=== PATIENT | male | born 1960 | race Caucasian/White ===

== ENCOUNTER 2024-02-23 03:40 | Emergency (ER) | payer BC, MEDICARE, SELFPAY ==
[2024-02-23] VITALS (7 sets, daily range): BP systolic 177–225; BP diastolic 98–129; BMI 32.5
[2024-02-23 05:06] LABS: % Basophils 0.3 % (0-2); % Eosinophils 3.8 % (0-6); % Immature Granulocytes 0.3 % (0-0.5); % Lymphocytes 30.6 % (20.5-51.1); % Monocytes 7.7 % (1.7-9.3); % Neutrophils 57.3 % (42.2-75.2); Absolute Eosinophils 0.3 10^3/uL (0-0.7); Absolute Lymphocytes 2.7 10^3/uL (1.2-3.4); Absolute Monocytes 0.7 10^3/uL (0.1-0.6); Absolute Neutrophils 5.1 10^3/uL (1.4-6.5); Hematocrit 39.5 % (39.0-52.0); Hemoglobin 14.4 g/dL (13.0-18.0); Mean Corp Hgb Conc. 36.5 g/dL (33.0-37.0); Mean Corpuscular Volume 84.9 fL (80.0-94.0); Mean Platelet Volume 10.1 fL (7.4-10.4); Nucleated Red Blood Cells % 0 % (-); Platelet Count 161 10^3/uL (130-400); Red Blood Cell Count 4.65 10^6/uL (4.70-6.10); Red Cell Dist. Width 13.3 % (11.5-14.5); White Blood Cell Count 8.9 10^3/uL (4.8-10.8)
[2024-02-23 05:23] LABS: ALT (SGPT) 31 U/L (0-50); AST (SGOT) 29 U/L (17-59); Albumin 4.5 g/dl (3.5-5.0); Alkaline Phosphatase 53 U/L (38-126); Blood Urea Nitrogen 22 mg/dl (9-20); Carbon Dioxide 25 mmol/L (22-30); Chloride 99 mmol/L (98-107); Estimated Creatinine Clearance 73 ml/min; Glucose 154 mg/dl (70-99); Sodium 139 mmol/L (135-145); Total Bilirubin 1.1 mg/dl (0.2-1.3); Total Protein 7.5 g/dl (6.3-8.2); eGFR > 60.00
--- NOTE | 2024-02-23 09:28 | ED.GENMED ---
History of Present Illness
General
Chief Complaint: Blood Pressure Problem
Source: patient
Exam Limitations: none
Time Seen by Provider: 02/23/24 06:10
Nursing documentation reviewed up to this point in time: agreed with
History of Present Illness
History of Present Illness:
63-year-old male with a past medical history as documented presents to the emergency department for evaluation of hypertension and headache. Patient reports that yesterday he was feeling 'not quite right' and had mild headache and he checked his
blood pressure and noted it was elevated throughout the day. Overnight he felt headache was worsening and noticed his blood pressure was well over 200 at home and so he came to the emergency to be evaluated. Since arrival in the ER his blood
pressure has improved and he says that his headache has improved as well. He denies any chest pain, shortness of breath, dizziness. Denies any focal weakness or numbness. Denies any change in his vision or speech. He denies any other complaints.
He is on carvedilol 12.5 mg twice daily for blood pressure. Denies any missed doses. He does admit that yesterday he had a meal with his son who is a salad chef which included meat/steak with cream sauce which was very salty.
Past History
Past History
ED Past Medical History: CAD, GERD, HTN, Hypercholesterolemia, NIDDM, [place], Renal failure and Other (Diverticulitism UTI)
ED Past Surgical History: Bowel resection (For diverticulitis), Cardiac (PTCA with stents X 4 end of November 2009) and Orthopedic (back surgery)
Social History
Tobacco: Former smoker
Alcohol: Occasional
Drug: None
Personal:
Living: with family
Employment: Employed
Family History
Family History: Hypertension
Review of Systems
Review of Systems
All Other Systems: ROS reviewed and negative except as documented in HPI and ROS
Constitutional: Denies fever
Respiratory: Denies trouble breathing
Cardiac: Denies chest pain
ABD/GI: Denies abdominal pain, nausea or vomiting
: Denies flank pain
Musculoskeletal: Denies neck pain or back pain
Neurological: Reports headache; Denies dizzy, weakness or numbness
Phy Exam
Physical Exam
Physical Exam:
General: Awake, alert, oriented x3; no acute distress
Head: Normocephalic, atraumatic
Eyes: Conjunctiva normal, EOMI, pupils equal round and reactive to light bilaterally
Throat: Airway intact, handling secretions
Neck: Trachea midline, supple without meningismus
Lungs: Clear to auscultation bilaterally, no wheezing, rales, rhonchi
Heart: Regular rate and rhythm, no murmurs, gallops, or rubs
Abd: Soft, non distended, nontender
Neuro: Cranial nerves intact 2 through 12, speech fluid with no dysarthria or aphasia, no limb ataxia, motor and sensory function intact proximally and distally in the upper and lower extremities, ambulatory with normal gait and no ataxia
Extremities: No edema in extremities, equal pulses in all extremities
Scores
Heart Failure Risk
Heart Failure Risk Score: Not Applicable
Heart Score for Chest Pain Patients
STEMI patient?: Not applicable
Withdrawal Assessment of Alcohol
Withdrawal Assessment Completed?: Not applicable
Course
Orders/Labs/Results
Orders:
Orders
02/23/24 03:45
EKG [Electrocardiogram (*1)] Urgent
Reason for Study: Hypertension, Benign
02/23/24 03:46
EKG- Treatment ONCE
02/23/24 04:[address] [CT Head W/o Iv Contrast] Urgent
Comment:
Reason For Exam: HTN w/ headache
02/23/24 04:53
CMP [Comprehensive Metabolic Panel] Urgent
Complete Blood Count/With Diff Urgent
Abnormal Lab Results
02/23/24
04:53
RBC 4.65 L 10^6/uL
(4.70-6.10)
Absolute Monos (auto) 0.7 H 10^3/uL
(0.1-0.6)
BUN 22 H mg/dl
(9-20)
Glucose 154 H mg/dl
(70-99)
02/23/24 04:53
02/23/24 04:53
Vital Signs
Initial and Last Documented VS:
Initial Vital Signs
Temp Pulse Resp BP Pulse Ox
36.7 C 99 20 225/129 98
02/23/24 03:41 02/23/24 03:41 02/23/24 03:41 02/23/24 03:41 02/23/24 03:41
Last Documented Vital Signs
Temp Pulse Resp BP Pulse Ox
36.7 C 89 17 180/104 95
02/23/24 03:41 02/23/24 08:00 02/23/24 08:00 02/23/24 08:00 02/23/24 07:45
MDM/Problems Addressed
Differential Diagnosis Includes:
Hypertension
MDM/Problems Addressed:
63-year-old male presents for evaluation of hypertension with associated headache over the past 24 hours in the setting of recent salty meal yesterday. He was very hypertensive to 225/129 in triage. Blood pressure improved to 169/90 on my
assessment with no direct invention. He had lab work sent off including a CBC and a CMP which were unremarkable. EKG shows sinus rhythm no acute ischemic changes. He was sent for CT head which was negative for any acute pathology. His symptoms
improved with his blood pressure. At this point would hesitate to add additional antihypertensive medication as it has dramatically improved without intervention and likely was triggered by salt intake yesterday. Advised to monitor salt intake
very closely, he is requesting discharge at this point I think this is a reasonable plan. Follow-up with PCP as an outpatient. Spoke about return precautions all questions answered.
Chronic conditions affecting care:
Hypertension
Acute Exacerbation and/or Progression of Chronic Illness:
Acutely hypertensive managed as above
Acute Exacerbation and/or Progression of Chronic Illness: HTN
*Radiology
Radiology exam reviewed: radiology read reviewed
*Pulse Oximetry
Patient hypoxic: no
*EKG
Interpreted by ED Provider?: Yes
Heart Rate: 97
Rate: normal
Rhythm: sinus
[place]: normal axis
Interval: normal interval
QRS Pattern: normal QRS
Ischemia: no ischemia
*Critical Care Note
Total Time (30-74mins, 75-104mins- exclusive of procedures): Not Applicable
Data Reviewed
Source: patient
Prescriptions/Medications Considered But Not Given:
Considered additional antihypertensives such as IV hydralazine
ED Attending Note
-
Portions of this chart may have been created with voice recognition software.� Occasional wrong word or��sound alike� substitutions may have occurred due to the inherent limitations of voice recognition software.
Discharge Plan
Departure
Patient Disposition: Home (Routine Discharge)
Date of Disposition: 02/23/24
Time of Disposition: 08:13
Patient with high blood pressure during this ER visit?: Yes
Discharge Problem:
Hypertensive urgency
Instructions: High Blood Pressure (DC)
Prescriptions:
No Action
pantoprazole 40 MG tablet,delayed release (DR/EC)
40 mg PO DAILY Qty: 30 0RF
aspirin [Dilshad Low Dose Aspirin] 81 MG tablet,delayed release (DR/EC)
81 mg PO DAILY
rosuvastatin 10 MG tablet
10 mg PO QPM Qty: 90 3RF
famotidine 20 MG tablet
20 mg PO HS
albuterol sulfate [Proventil HFA] 90 MCG/PUFF HFA aerosol inhaler
1 puff inhalation Q4HPRN PRN (Reason: shortness of breath) Qty: 1 0RF
insulin glargine [Basaglar KwikPen U-100 Insulin] 100 UNIT/ML insulin pen
45 unit SQ DAILY
diphenhydramine HCl 25 MG strip
25 mg PO HS
carvedilol 12.5 MG tablet
12.5 mg PO BID Qty: 60 0RF
valsartan 80 MG tablet
240 mg PO DAILY Qty: 90 0RF
insulin aspart U-100 100 UNIT/ML insulin pen
5 unit SQ AC Qty: 5 0RF
cephalexin 500 mg capsule
500 mg PO Q8H Qty: 15 0RF
prednisone 20 mg tablet
20 mg PO DAILY Qty: 4 0RF
Referrals:
Phillip Maldonado MD [Family Provider] - Follow up in 5-7 days
Activity Restrictions/Additional Instructions:
Thank you for visiting the Emergency Department at [facility].
1. Please schedule a follow up appointment as directed. Call first thing tomorrow morning to make an appointment.
2. If indicated, please take your medications as instructed and indicated on discharge paperwork.
3. If any of your symptoms do not improve, or persist, or become more severe within 6-12 hours, please return to the emergency department for further care.
4. Please return to the emergency department if you develop a headache, neck pain/stiffness, fever greater than 100.4F, chest pain, shortness of breath, persistent nausea, vomiting, slurred speech, difficulty walking, numbness/tingling, weakness,
signs of infection or any other symptoms that are worrisome to you.
Please call [phone] if you have any questions.
Interventions
Interventions:
*Risk Screen - Suicide Last Done: 02/23/24 03:41
*General Assessment Last Done: 02/23/24 03:41
*Neglect/Abuse Screening Last Done: 02/23/24 03:41
*ED COVID-19 Vaccine History Last Done: 02/23/24 03:41
*Nursing Disposition Last Done: 02/23/24 08:25
ED- Cardiac Assessment Last Done: 02/23/24 04:45
ED- Neurological Assessment Last Done: 02/23/24 04:45
ED- Pulmonary Assessment Last Done: 02/23/24 04:45
Discharge Date and Time
Discharge Date/Time: 02/23/24 08:25
Print Language: ZAMBIAN
== END 2024-02-23 08:25 | disposition home or self-care (01) ==
LOC: EMR 03:40
PROVIDERS: Emergency Medicine; EMERGENCY PHYSICIAN Emergency Medicine; FAMILY PHYSICIAN Family Medicine
DX: I16.0 Hypertensive urgency (principal); I25.10 Atherosclerotic heart disease of native coronary artery without angina pectoris; E78.00 Pure hypercholesterolemia, unspecified; E11.9 Type 2 diabetes mellitus without complications; I25.2 Old myocardial infarction; Z87.891 Personal history of nicotine dependence; Z95.5 Presence of coronary angioplasty implant and graft; Z79.899 Other long term (current) drug therapy
CPT/HCPCS: 99284; 70450; 80053; 85025; 93005

== ENCOUNTER 2024-03-06 02:45 | Emergency (ER) | payer BC, SELFPAY ==
[2024-03-06 02:46] VITALS: BP 220/132
[2024-03-06 02:49] VITALS: BP 210/125
[2024-03-06 03:18] VITALS: BMI 31.6
[2024-03-06 03:31] VITALS: BP 212/108
[2024-03-06] MEDS: NSS 1000 IV (03:33)
[2024-03-06 03:48] LABS: Urine Albumin Trace (Neg - Trace); Urine Bilirubin Negative (Negative); Urine Character Clear (Clear); Urine Color Yellow; Urine Glucose Negative (Negative); Urine Ketone Negative (Negative); Urine Leukocyte Negative (Negative); Urine Nitrite Negative (Negative); Urine Occult Blood Negative (Negative); Urine Urobilinogen Negative (Neg - 1+)
--- NOTE | 2024-03-06 03:57 | ED.GENMED ---
History of Present Illness
<STEVE Waller - Last Filed: 03/06/24 04:18>
General
Chief Complaint: Flank Pain
Source: patient
Exam Limitations: none
Time Seen by Provider: 03/06/24 03:53
Nursing documentation reviewed up to this point in time: agreed with
History of Present Illness
History of Present Illness:
Pt is a 63 yo M w/ PMH of NSTEMI, Type 2 DM, HTN, HLD, GERD, EDITH, and CAD who presents to the ED with complaints of L sided flank pain x 3-4 weeks which he states has worsened over the past day and radiates to his back. He states the pain is severe
and and worse with movement. He states he has not tried any medication to help. He admits to associated nausea that has been present x 1day w/o any episodes of vomiting. Pt also admits to JONES which has onset since arrival at the ED that he describes
as bandlike. He denies changes in vision, anorexia, dysuria, abdominal pain, hematuria, chest pain.
Past History
<STEVE Waller - Last Filed: 03/06/24 04:18>
Past History
ED Past Medical History: CAD, GERD, HTN, Hypercholesterolemia, NIDDM, [place], Renal failure and Other (Diverticulitism UTI)
ED Past Surgical History: Bowel resection (For diverticulitis), Cardiac (PTCA with stents X 4 end of November 2009) and Orthopedic (back surgery)
Social History
Tobacco: Former smoker
Alcohol: Occasional
Drug: None
Personal:
Living: with family
Employment: Employed
Family History
Family History: Hypertension
Review of Systems
<STEVE Waller - Last Filed: 03/06/24 04:18>
Review of Systems
Allergies reviewed?: Yes
Constitutional: Denies fever, fatigue, night sweats or chills
EENT: Denies sore throat
Respiratory: Denies cough or trouble breathing
Cardiac: Denies chest pain or palpitations
ABD/GI: Reports nausea; Denies abdominal pain, vomiting or diarrhea
: Reports flank pain; Denies dysuria, frequency, incontinence, difficulty voiding, urgency, bleeding or dark urine
Neurological: Reports headache; Denies dizzy, weakness or numbness
Endocrine: Denies polyuria or polydipsia
Phy Exam
<Tiffanie Sandhu, [facility] - Last Filed: 03/06/24 04:18>
General Physical Exam
General Presentation: mild distress
General age: appears stated age
General Skin: warm and dry
General Habitus: normal
General Mental: alert
General Hydration: appears well hydrated
Cardiovascular Exam
Cardiovascular Exam: regular rate/rhythm and no murmur
Heart Sounds: normal
Pulmonary Exam
Pulmonary Exam: lungs clear and no respiratory distress
Gastrointestinal Exam
Gastrointestinal Exam: normal bowel sounds, soft, non distended and cva tenderness
Skin Exam
Skin Exam: normal color and warm/dry
Course
<Tiffanie Sandhu [facility] - Last Filed: 03/06/24 04:18>
Orders/Labs/Results
Orders:
Orders
03/06/24 02:49
Electrocardiogram (*1) Urgent
Reason for Study: Shortness of Breath
EKG- Treatment ONCE
03/06/24 03:27
CT Abd/pel Without Iv Or Oral Urgent
Comment:
Reason For Exam: acute L flank pain
03/06/24 03:31
Complete Blood Count/With Diff Urgent
Comprehensive Metabolic Panel Urgent
Urinalysis Reflex To Culture Urgent
Date Specimen was Collected: 03/06/24
Time Specimen was Collected: 03:05
03/06/24 03:33
0.9% Sodium Chloride 1000 ml [Nss] 1,000 ml IV BOLUS
03/06/24 04:10
Ketorolac [Toradol] 30 mg IV NOW STA
Ondansetron Injectable [Zofran] 4 mg IV NOW STA
Abnormal Lab Results
03/06/24
03:31
RBC 4.47 L 10^6/uL
(4.70-6.10)
Hct 38.6 L %
(39.0-52.0)
Absolute Monos (auto) 0.7 H 10^3/uL
(0.1-0.6)
BUN 24 H mg/dl
(9-20)
Glucose 116 H mg/dl
(70-99)
03/06/24 03:31
03/06/24 03:31
Vital Signs
Initial and Last Documented VS:
Initial Vital Signs
Temp Pulse Resp BP Pulse Ox
98.7 F 85 16 220/132 100
03/06/24 02:46 03/06/24 02:46 03/06/24 02:46 03/06/24 02:46 03/06/24 02:46
Last Documented Vital Signs
Temp Pulse Resp BP Pulse Ox
98.7 F 77 16 168/88 97
03/06/24 02:46 03/06/24 07:03 03/06/24 02:46 03/06/24 07:03 03/06/24 07:03
<Jodie Fabian, DO - Last Filed: 03/06/24 07:59>
Orders/Labs/Results
Orders:
Orders
03/06/24 02:49
Electrocardiogram (*1) Urgent
Reason for Study: Shortness of Breath
EKG- Treatment ONCE
03/06/24 03:27
CT Abd/pel Without Iv Or Oral Urgent
Comment:
Reason For Exam: acute L flank pain
03/06/24 03:31
Complete Blood Count/With Diff Urgent
Comprehensive Metabolic Panel Urgent
Urinalysis Reflex To Culture Urgent
Date Specimen was Collected: 03/06/24
Time Specimen was Collected: 03:05
03/06/24 03:33
0.9% Sodium Chloride 1000 ml [Nss] 1,000 ml IV BOLUS
03/06/24 04:10
Ketorolac [Toradol] 30 mg IV NOW STA
Ondansetron Injectable [Zofran] 4 mg IV NOW STA
Abnormal Lab Results
03/06/24
03:31
RBC 4.47 L 10^6/uL
(4.70-6.10)
Hct 38.6 L %
(39.0-52.0)
Absolute Monos (auto) 0.7 H 10^3/uL
(0.1-0.6)
BUN 24 H mg/dl
(9-20)
Glucose 116 H mg/dl
(70-99)
03/06/24 03:31
03/06/24 03:31
Vital Signs
Initial and Last Documented VS:
Initial Vital Signs
Temp Pulse Resp BP Pulse Ox
98.7 F 85 16 220/132 100
03/06/24 02:46 03/06/24 02:46 03/06/24 02:46 03/06/24 02:46 03/06/24 02:46
Last Documented Vital Signs
Temp Pulse Resp BP Pulse Ox
98.7 F 77 16 168/88 97
03/06/24 02:46 03/06/24 07:03 03/06/24 02:46 03/06/24 07:03 03/06/24 07:03
Jenlt;STEVE Waller - Last Filed: 03/06/24 04:18>
MDM/Problems Addressed
Differential Diagnosis Includes:
acute cystitis, kidney stones, pyelonephritis, msk pain, STEMI
<STEVE Waller - Last Filed: 03/06/24 04:18>
*Critical Care Note
Total Time (30-74mins, 75-104mins- exclusive of procedures): Not Applicable
<Jodie Fabian DO - Last Filed: 03/06/24 07:59>
*Radiology
Radiology exam reviewed: radiology read reviewed
*Pulse Oximetry
Patient hypoxic: no
*EKG
Interpreted by ED Provider?: Yes
Interpretation: normal
Comparison EKG: no changes (Unchanged from previous January 2024)
Rate: normal
Rhythm: sinus
[place]: normal axis
Interval: normal interval
QRS Pattern: normal QRS
Ischemia: no ischemia
*Fisher Interpretation
Rate: normal
Interpretation: normal
Rhythm: sinus
ED Attending Note
<STEVE Waller - Last Filed: 03/06/24 04:18>
-
Portions of this chart may have been created with voice recognition software.� Occasional wrong word or��sound alike� substitutions may have occurred due to the inherent limitations of voice recognition software.
<Jodie Fabian DO - Last Filed: 03/06/24 07:59>
ED Attending Note
Patient seen and examined by attending physician: Yes
I performed the substantive portion of visit, reviewed & personally made and approve the management plan that is documented in note by myself or PADMA.: Yes
ED Attending Note:
This is a 63-year-old gentleman who is a longstanding history of poorly controlled hypertension, history of hyperlipidemia, CAD, kidney stones, diabetes, low back pain/lumbar disc disease.
He reports remote history of kidney stones perhaps 15 to 20 years ago.
Initially presented to this ED with complaints of abrupt onset of left flank pain that woke him from sleep tonight but upon further review admits that left flank, left low back pain had been persistent over the past month, worsening over the past
week. He denies injury but admits that left back pain is much worse with movement, worse with sitting up, rolling over. No difficulty with ambulation. No radiation of the pain. No rash.
He has an appointment scheduled with urology, Dr. Burgos for March 08.
He has not had a fever nor chills, no abdominal pain, no dysuria and urgency and or hematuria. He denies chest pain or cough nor shortness of breath. He does admit to intermittent headache but no weakness nor numbness.
He is noted to have elevated blood pressure, similar blood pressure elevation noted during ED visit just 2 weeks ago for which he underwent unremarkable laboratory studies and unremarkable CT of his head.
He has been compliant with his twice daily BP medications including Coreg and valsartan hand. He admits to neglecting follow-up with his PCP for at least the past 3 to 4 months.
GENERAL: 63-year-old obese gentleman appears his stated age, awake and alert, easily communicative and appears in no acute distress.
EYE: anicteric
NECK: Supple, nontender, no meningismus, no significant adenopathy.
ENT: oral mucosa is moist. No rhinorrhea.
CARDIAC: Regular rate and rhythm. no murmur.
LUNGS: Clear breath sounds bilaterally, no acute respiratory distress, no wheezes/rales/rhonchi
ABDOMEN: Rotund, soft, nondistended, without focal tenderness, no r/g, no cvat. normoactive BS.
BACK: No midline bony tenderness. Mild tenderness left paralumbar region.
NEUROLOGICAL: Alert and oriented x3, no focal neuro deficits. Gait is steady.
SKIN: Warm and dry, normal color, skin intact. No rash.
MUSCULOSKELETAL: No C/C/E. peripheral pulses are full and equal b/l. No palpable tenderness.
PSYCH: Normal and appropriate interaction.
Patient presents with 1 month history of left flank/left low back pain. Worse with movement and I highly suspect musculoskeletal in nature.
He does however have prior history of kidney stones, thus must consider ureteric stone, hydronephrosis, less likely pyelonephritis.
Significantly hypertensive and noted to be significantly hypertensive on ED visit 2 weeks ago. I suspect chronically poorly controlled hypertension. AAA is unlikely but will check CT abdomen and pelvis.
Labs so far unremarkable. Normal renal function. Urinalysis is pending.
Will medicate for pain with an IV dose of Toradol.
Patient admits to moderate improvement in left back pain. He does continue with some pain more so with sitting up, twisting of his trunk.
Urinalysis is unremarkable.
Hypertension improving with improvement in pain control.
CAT scan shows questionable mild left-sided hydronephrosis but no evidence of obstructing stone which may suggest recently passed stone. As left back pain has been ongoing for 1 month I highly suspect musculoskeletal in nature and not related to
recently passed stone.
Blood pressure improving with pain control and recommend he continue with Tylenol versus ibuprofen. May also trial [id number] lidocaine patch. Local heat.
Follow-up with urology, Dr. Burgos as already scheduled in 2 days time.
Encouraged to follow-up with PCP this week for BP recheck. I suspect blood pressure medications will need to be titrated.
Discharge Plan
Departure
Patient Disposition: Home (Routine Discharge)
Date of Disposition: 03/06/24
Time of Disposition: 06:28
Patient with high blood pressure during this ER visit?: No
Condition: Good
Discharge Problem:
Left flank pain, Chronic hypertension
Instructions: Flank Pain (DC)
Prescriptions:
No Action
pantoprazole 40 MG tablet,delayed release (DR/EC)
40 mg PO DAILY Qty: 30 0RF
aspirin [Dilshad Low Dose Aspirin] 81 MG tablet,delayed release (DR/EC)
81 mg PO DAILY
rosuvastatin 10 MG tablet
10 mg PO QPM Qty: 90 3RF
famotidine 20 MG tablet
20 mg PO HS
albuterol sulfate [Proventil HFA] 90 MCG/PUFF HFA aerosol inhaler
1 puff inhalation Q4HPRN PRN (Reason: shortness of breath) Qty: 1 0RF
insulin glargine [Basaglar KwikPen U-100 Insulin] 100 UNIT/ML insulin pen
45 unit SQ DAILY
diphenhydramine HCl 25 MG strip
25 mg PO HS
carvedilol 12.5 MG tablet
12.5 mg PO BID Qty: 60 0RF
valsartan 80 MG tablet
240 mg PO DAILY Qty: 90 0RF
insulin aspart U-100 100 UNIT/ML insulin pen
5 unit SQ AC Qty: 5 0RF
cephalexin 500 mg capsule
500 mg PO Q8H Qty: 15 0RF
prednisone 20 mg tablet
20 mg PO DAILY Qty: 4 0RF
Referrals:
Phillip Maldonado MD [Family Provider] - Call in 1-3 days for appt
Santos Burgos MD [Active] - Keep scheduled appt
Interventions
Interventions:
*Risk Screen - Suicide Last Done: 03/06/24 02:46
*General Assessment Last Done: 03/06/24 02:46
*Neglect/Abuse Screening Last Done: 03/06/24 02:46
ED- Fall Risk Assessment Last Done: 03/06/24 03:48
*ED COVID-19 Vaccine History Last Done: 03/06/24 02:46
*Nursing Disposition Last Done: 03/06/24 07:03
SW-Rqzsie-Oxmjizroax Assessment Last Done: 03/06/24 03:48
ED-Male Genitourinary Assessment Last Done: 03/06/24 03:48
Discharge Date and Time
Discharge Date/Time: 03/06/24 07:04
Print Language: [place]
[2024-03-06 04:04] VITALS: BP 212/102
[2024-03-06 04:18] LABS: ALT (SGPT) 25 U/L (0-50); AST (SGOT) 25 U/L (17-59); Albumin 4.4 g/dl (3.5-5.0); Alkaline Phosphatase 57 U/L (38-126); Blood Urea Nitrogen 24 mg/dl (9-20); Calcium 8.9 mg/dl (8.4-10.2); Carbon Dioxide 26 mmol/L (22-30); Chloride 102 mmol/L (98-107); Estimated Creatinine Clearance 79 ml/min; Glucose 116 mg/dl (70-99); Potassium 3.7 mmol/L (3.5-5.1); Sodium 138 mmol/L (135-145); Total Bilirubin 0.7 mg/dl (0.2-1.3); Total Protein 7.1 g/dl (6.3-8.2); eGFR > 60.00
[2024-03-06] MEDS: TORADOL 30 MG IV (04:21)
[2024-03-06] MEDS: ZOFRAN 4 MG IV (04:22)
[2024-03-06 04:23] LABS: % Basophils 0.6 % (0-2); % Eosinophils 2.7 % (0-6); % Immature Granulocytes 0.4 % (0-0.5); % Lymphocytes 34.9 % (20.5-51.1); % Neutrophils 53.4 % (42.2-75.2); Absolute Basophils 0.1 10^3/uL (0-0.2); Absolute Eosinophils 0.2 10^3/uL (0-0.7); Absolute Lymphocytes 2.9 10^3/uL (1.2-3.4); Absolute Monocytes 0.7 10^3/uL (0.1-0.6); Absolute Neutrophils 4.4 10^3/uL (1.4-6.5); Hematocrit 38.6 % (39.0-52.0); Hemoglobin 13.2 g/dL (13.0-18.0); Mean Corp Hgb Conc. 34.2 g/dL (33.0-37.0); Mean Corpuscular Hgb 29.5 pg (27.0-31.0); Mean Corpuscular Volume 86.4 fL (80.0-94.0); Nucleated Red Blood Cells % 0 % (-); Red Blood Cell Count 4.47 10^6/uL (4.70-6.10); Red Cell Dist. Width 13.3 % (11.5-14.5); White Blood Cell Count 8.3 10^3/uL (4.8-10.8)
[2024-03-06 05:12] VITALS: BP 171/88
[2024-03-06 07:03] VITALS: BP 168/88
== END 2024-03-06 07:04 | disposition home or self-care (01) ==
LOC: EMR 02:45
PROVIDERS: EMERGENCY PHYSICIAN Emergency Medicine; FAMILY PHYSICIAN Family Medicine
DX: R10.9 Unspecified abdominal pain (principal); R11.0 Nausea; R51.9 Headache, unspecified; R06.02 Shortness of breath; M54.50 Low back pain, unspecified; I10 Essential (primary) hypertension; E78.00 Pure hypercholesterolemia, unspecified; E11.22 Type 2 diabetes mellitus with diabetic chronic kidney disease; I12.9 Hypertensive chronic kidney disease with stage 1 through stage 4 chronic kidney disease, or unspecified chronic kidney disease; N18.9 Chronic kidney disease, unspecified; K21.9 Gastro-esophageal reflux disease without esophagitis; I25.10 Atherosclerotic heart disease of native coronary artery without angina pectoris; G47.33 Obstructive sleep apnea (adult) (pediatric); E66.9 Obesity, unspecified; I25.2 Old myocardial infarction; Z79.82 Long term (current) use of aspirin; Z95.5 Presence of coronary angioplasty implant and graft; Z87.440 Personal history of urinary (tract) infections; Z87.442 Personal history of urinary calculi; Z98.0 Intestinal bypass and anastomosis status; Z88.1 Allergy status to other antibiotic agents; Z91.048 Other nonmedicinal substance allergy status
CPT/HCPCS: 99285; 96374; 96375; 96361 ×3; 74176; 80053; 81003; 85025; 93005

== ENCOUNTER → 2024-03-15 07:57 | Outpatient (REF) | payer BC, SELFPAY ==
[2024-03-15 08:43] LABS: % Basophils 0.7 % (0-2); % Eosinophils 3.3 % (0-6); % Immature Granulocytes 0.6 % (0-0.5); % Lymphocytes 24.7 % (20.5-51.1); % Monocytes 7.1 % (1.7-9.3); % Neutrophils 63.6 % (42.2-75.2); Absolute Basophils 0.1 10^3/uL (0-0.2); Absolute Eosinophils 0.3 10^3/uL (0-0.7); Absolute Immature Granulocytes 0.1 10^3/uL (0-0.05); Absolute Monocytes 0.6 10^3/uL (0.1-0.6); Absolute Neutrophils 5.2 10^3/uL (1.4-6.5); Hematocrit 38.8 % (39.0-52.0); Hemoglobin 13.9 g/dL (13.0-18.0); Mean Corp Hgb Conc. 35.8 g/dL (33.0-37.0); Mean Corpuscular Hgb 30.5 pg (27.0-31.0); Mean Corpuscular Volume 85.1 fL (80.0-94.0); Mean Platelet Volume 11.4 fL (7.4-10.4); Nucleated Red Blood Cells % 0 % (-); Platelet Count 200 10^3/uL (130-400); Red Blood Cell Count 4.56 10^6/uL (4.70-6.10); Red Cell Dist. Width 13.1 % (11.5-14.5); White Blood Cell Count 8.2 10^3/uL (4.8-10.8)
[2024-03-15 09:01] LABS: ALT (SGPT) 28 U/L (0-50); AST (SGOT) 26 U/L (17-59); Albumin 4.5 g/dl (3.5-5.0); Alkaline Phosphatase 60 U/L (38-126); Blood Urea Nitrogen 17 mg/dl (9-20); Calcium 8.8 mg/dl (8.4-10.2); Carbon Dioxide 29 mmol/L (22-30); Chloride 101 mmol/L (98-107); Glucose 144 mg/dl (70-99); HDL Cholesterol 33 mg/dl; LDL Cholesterol, Calculated 39 mg/dl; Potassium 3.7 mmol/L (3.5-5.1); Sodium 140 mmol/L (135-145); Total Bilirubin 0.7 mg/dl (0.2-1.3); Total Cholesterol 111 mg/dl (50-199); Total Protein 7.1 g/dl (6.3-8.2); Triglyceride 197 mg/dl (10-149); Very Low Density Lipoprotein 39 mg/dl (0-30); eGFR > 60.00
[2024-03-15 09:47] LABS: Glycohemoglobin (HgbA1c) 5.3 % (4.0-5.6)
[2024-03-15 14:00] LABS: Free T4 0.92 ng/dl (0.78-2.19)
== END ==
LOC: REG 07:57
PROVIDERS: ATTENDING PHYSICIAN Nurse Practitioner Family; FAMILY PHYSICIAN Family Medicine
DX: I10 Essential (primary) hypertension (principal); Z68.32 Body mass index [BMI] 32.0-32.9, adult; E11.65 Type 2 diabetes mellitus with hyperglycemia; E78.2 Mixed hyperlipidemia
CPT/HCPCS: 36415; 80053; 80061; 83036; 84439; 84443; 85025

== ENCOUNTER 2024-03-27 00:46 | Emergency (ER) | payer BC, SELFPAY ==
[2024-03-27 01:37] LABS: ALT (SGPT) 31 U/L (0-50); AST (SGOT) 30 U/L (17-59); Albumin 4.6 g/dl (3.5-5.0); Alkaline Phosphatase 60 U/L (38-126); Blood Urea Nitrogen 22 mg/dl (9-20); Calcium 8.9 mg/dl (8.4-10.2); Carbon Dioxide 23 mmol/L (22-30); Chloride 103 mmol/L (98-107); Glucose 162 mg/dl (70-99); Potassium 4.1 mmol/L (3.5-5.1); Sodium 139 mmol/L (135-145); Total Bilirubin 0.8 mg/dl (0.2-1.3); Total Protein 7.4 g/dl (6.3-8.2); eGFR > 60.00
[2024-03-27 01:38] LABS: % Basophils 0.6 % (0-2); % Eosinophils 4.1 % (0-6); % Immature Granulocytes 0.1 % (0-0.5); % Lymphocytes 34.2 % (20.5-51.1); % Monocytes 6.7 % (1.7-9.3); % Neutrophils 54.3 % (42.2-75.2); Absolute Basophils 0.1 10^3/uL (0-0.2); Absolute Eosinophils 0.3 10^3/uL (0-0.7); Absolute Lymphocytes 2.7 10^3/uL (1.2-3.4); Absolute Monocytes 0.5 10^3/uL (0.1-0.6); Absolute Neutrophils 4.2 10^3/uL (1.4-6.5); Hematocrit 37.6 % (39.0-52.0); Hemoglobin 13.6 g/dL (13.0-18.0); Mean Corp Hgb Conc. 36.2 g/dL (33.0-37.0); Mean Corpuscular Volume 85.6 fL (80.0-94.0); Mean Platelet Volume 11.9 fL (7.4-10.4); Nucleated Red Blood Cells % 0 % (-); Platelet Count 179 10^3/uL (130-400); Red Blood Cell Count 4.39 10^6/uL (4.70-6.10); Red Cell Dist. Width 13.3 % (11.5-14.5); White Blood Cell Count 7.8 10^3/uL (4.8-10.8)
[2024-03-27 01:41] LABS: Troponin I < 0.012 ng/ml
== END 2024-03-27 02:24 ==
LOC: EMR 00:46
PROVIDERS: EMERGENCY PHYSICIAN Emergency Medicine
DX: R03.0 Elevated blood-pressure reading, without diagnosis of hypertension (principal); K59.00 Constipation, unspecified
CPT/HCPCS: 80053; 84484; 85025; 93005

== ENCOUNTER → 2024-05-09 08:06 | Outpatient (REF) | payer BC, SELFPAY | LOC: RCS 08:06 | PROVIDERS: ATTENDING PHYSICIAN Nuclear Medicine Nuclear Cardiology; FAMILY PHYSICIAN Family Medicine | DX: I10 Essential (primary) hypertension (principal); I25.10 Atherosclerotic heart disease of native coronary artery without angina pectoris | CPT/HCPCS: 93306 ==

== ENCOUNTER 2024-08-06 21:13 | Emergency (ER) | payer BC, SELFPAY ==
[2024-08-06 21:22] VITALS: BP 200/100
[2024-08-06 21:50] LABS: Hemoglobin 14.5 g/dL (13.0-18.0); Red Blood Cell Count 4.72 10^6/uL (4.70-6.10); White Blood Cell Count 15.4 10^3/uL (4.8-10.8)
[2024-08-06 21:51] LABS: % Basophils 0.3 % (0-2); % Eosinophils 0.5 % (0-6); % Immature Granulocytes 0.9 % (0-0.5); % Lymphocytes 17.7 % (20.5-51.1); % Monocytes 9.6 % (1.7-9.3); Absolute Basophils 0.1 10^3/uL (0-0.2); Absolute Eosinophils 0.1 10^3/uL (0-0.7); Absolute Immature Granulocytes 0.1 10^3/uL (0-0.05); Absolute Lymphocytes 2.7 10^3/uL (1.2-3.4); Absolute Monocytes 1.5 10^3/uL (0.1-0.6); Absolute Neutrophils 10.9 10^3/uL (1.4-6.5); Hematocrit 41.2 % (39.0-52.0); Mean Corp Hgb Conc. 35.2 g/dL (33.0-37.0); Mean Corpuscular Hgb 30.7 pg (27.0-31.0); Mean Corpuscular Volume 87.3 fL (80.0-94.0); Mean Platelet Volume 9.7 fL (7.4-10.4); Nucleated Red Blood Cells % 0 % (-); Platelet Count 183 10^3/uL (130-400); Red Cell Dist. Width 12.2 % (11.5-14.5)
[2024-08-06 22:04] LABS: ALT (SGPT) 56 U/L (0-50); AST (SGOT) 28 U/L (17-59); Albumin 4.3 g/dl (3.5-5.0); Alkaline Phosphatase 56 U/L (38-126); Blood Urea Nitrogen 28 mg/dl (9-20); Calcium 9.6 mg/dl (8.4-10.2); Carbon Dioxide 31 mmol/L (22-30); Chloride 99 mmol/L (98-107); Glucose 115 mg/dl (70-99); Potassium 4.8 mmol/L (3.5-5.1); Sodium 138 mmol/L (135-145); Total Bilirubin 0.7 mg/dl (0.2-1.3); Total Protein 7.4 g/dl (6.3-8.2); eGFR > 60.00
[2024-08-06 22:16] LABS: Troponin I < 0.012 ng/ml
[2024-08-06 23:04] VITALS: BP 152/100
[2024-08-06 23:04] LABS: Glucose - Point of Care 107 mg/dl (70-99)
[2024-08-07] MEDS: ANTIVERT 25 MG PO (00:45)
[2024-08-07] MEDS: NSS 1000 IV (00:45)
[2024-08-07 01:59] VITALS: BP 174/94
--- NOTE | 2024-08-07 02:04 | ED.GENMED ---
History of Present Illness
General
Chief Complaint: Blood Sugar Problem
Source: patient
Exam Limitations: none
Time Seen by Provider: 08/06/24 23:23
History of Present Illness
History of Present Illness:
64-year-old male who presents for evaluation of feeling dizzy and lightheaded. Patient states he also noticed that his blood sugars were high. He was just finishing course of steroids due to sinusitis. He took extra insulin x 2 and finally
started to notice to come down. He admits that when he turns his head he gets dizzy. Has had vertigo in the past and does admit that it feels similar. No chest pain. No palpitations.
Past History
Past History
ED Past Medical History: CAD, GERD, HTN, Hypercholesterolemia, NIDDM, [place], Renal failure and Other (Diverticulitism UTI)
ED Past Surgical History: Bowel resection (For diverticulitis), Cardiac (PTCA with stents X 4 end of November 2009) and Orthopedic (back surgery)
Social History
Tobacco: Former smoker
Alcohol: Occasional
Drug: None
Personal:
Living: with family
Employment: Employed
Family History
Family History: Hypertension
Phy Exam
Physical Exam
Physical Exam:
CONSTITUTIONAL Patient alert and oriented to person, place and time. Well-appearing. Vital signs reviewed.
HEAD atraumatic, normocephalic.
EYES eyelids normal to inspection, Extraocular muscles intact, Conjunctiva normal, Sclera normal.
NECK normal range of motion, Trachea midline, no jugular venous distention.
RESPIRATORY CHEST No respiratory distress noted, Chest expansion equal, Bilateral breath sounds clear.
CARDIOVASCULAR regular rate and rhythm, Heart sounds normal.
BACK normal inspection, no obvious deformities
UPPER EXTREMITY range of motion normal, Motor strength normal, no cyanosis, no edema.
LOWER EXTREMITY range of motion normal, Motor strength normal, no cyanosis, no edema.
NEURO Speech normal, No focal motor deficits, Madeleine coma scale 15, Memory normal, Cranial Nerves intact to screening exam. No pronator drift. Normal [id number].
SKIN skin warm, dry, and normal in color.
Course
Orders/Labs/Results
Orders:
Orders
08/06/24 21:26
Electrocardiogram (*1) Urgent
Reason for Study: Chest Pain
EKG- Treatment ONCE
08/06/24 21:42
Complete Blood Count/With Diff Urgent
Comprehensive Metabolic Panel Urgent
Troponin I Urgent
08/06/24 23:24
Urinalysis Reflex To Culture Urgent
08/06/24 23:53
0.9% Sodium Chloride 1000 ml [Nss] 1,000 ml IV BOLUS
Meclizine [Antivert] 25 mg PO NOW STA
Abnormal Lab Results
08/06/24 08/06/24
21:42 23:03
WBC 15.4 H 10^3/uL
(4.8-10.8)
Abs Immat Gran (auto) 0.1 H 10^3/uL
(0-0.05)
Absolute Neuts (auto) 10.9 H 10^3/uL
(1.4-6.5)
Absolute Monos (auto) 1.5 H 10^3/uL
(0.1-0.6)
Immature Gran % 0.9 H %
(0-0.5)
Lymphocytes % 17.7 L %
(20.5-51.1)
Monocytes % 9.6 H %
(1.7-9.3)
Carbon Dioxide 31 H mmol/L
(22-30)
BUN 28 H mg/dl
(9-20)
Glucose 115 H mg/dl
(70-99)
ALT 56 H U/L
(0-50)
POC Glucose 107 H mg/dl
(70-99)
08/06/24 21:42
08/06/24 21:42
Vital Signs
Initial and Last Documented VS:
Initial Vital Signs
Temp Pulse Resp BP Pulse Ox
97.8 F 72 18 200/100 100
08/06/24 21:22 08/06/24 21:22 08/06/24 21:22 08/06/24 21:22 08/06/24 21:22
Last Documented Vital Signs
Temp Pulse Resp BP Pulse Ox
97.8 F 70 18 174/94 98
08/06/24 21:22 08/07/24 01:59 08/06/24 21:22 08/07/24 01:59 08/07/24 01:59
MDM/Problems Addressed
Differential Diagnosis Includes:
Dehydration, hyperglycemia, electrolyte imbalance, CVA
MDM/Problems Addressed:
Vertigo, uncontrolled hypertension
*Pulse Oximetry
Patient hypoxic: no
*EKG
Interpreted by ED Provider?: Yes
Interpretation: normal
Rate: normal
Rhythm: sinus
Sidney: normal axis
Interval: normal interval
QRS Pattern: normal QRS
Ischemia: no ischemia
*Textile Engineer Interpretation
Rate: normal
Interpretation: normal
Rhythm: sinus
*Critical Care Note
Total Time (30-74mins, 75-104mins- exclusive of procedures): Not Applicable
Data Reviewed
Source: patient
Further Testing Considered But Not Given:
Considered head CT but patient is nonfocal and symptoms clearly worse with head position changes
Patient Management
Escalation/DeEscalation of care consider admission/obs:
Patient feels much improved after Antivert. Given IV fluids. Question whether he had a little bit of vertigo related to his sinusitis issues. Blood sugars now better controlled. Okay for discharge and outpatient follow-up
ED Attending Note
-
Portions of this chart may have been created with voice recognition software.� Occasional wrong word or��sound alike� substitutions may have occurred due to the inherent limitations of voice recognition software.
Discharge Plan
Departure
Patient Disposition: Home (Routine Discharge)
Date of Disposition: 08/07/24
Time of Disposition: 02:06
Patient with high blood pressure during this ER visit?: Yes
Discharge Problem:
Vertigo
Instructions: Vertigo (a type of dizziness), BLOOD PRESSURE
Prescriptions:
New
meclizine 25 mg tablet
25 mg PO TID PRN (Reason: dizziness) Qty: 14 0RF
No Action
pantoprazole 40 MG tablet,delayed release (DR/EC)
40 mg PO DAILY Qty: 30 0RF
aspirin [Dilshad Low Dose Aspirin] 81 MG tablet,delayed release (DR/EC)
81 mg PO DAILY
rosuvastatin 10 MG tablet
10 mg PO QPM Qty: 90 3RF
famotidine 20 MG tablet
20 mg PO HS
albuterol sulfate [Proventil HFA] 90 MCG/PUFF HFA aerosol inhaler
1 puff inhalation Q4HPRN PRN (Reason: shortness of breath) Qty: 1 0RF
insulin glargine [Basaglar KwikPen U-100 Insulin] 100 UNIT/ML insulin pen
45 unit SQ DAILY
diphenhydramine HCl 25 MG strip
25 mg PO HS
carvedilol 12.5 MG tablet
12.5 mg PO BID Qty: 60 0RF
valsartan 80 MG tablet
240 mg PO DAILY Qty: 90 0RF
insulin aspart U-100 100 UNIT/ML insulin pen
5 unit SQ AC Qty: 5 0RF
cephalexin 500 mg capsule
500 mg PO Q8H Qty: 15 0RF
prednisone 20 mg tablet
20 mg PO DAILY Qty: 4 0RF
Referrals:
Phillip Maldonado MD [Family Provider] -
Activity Restrictions/Additional Instructions:
Return immediately for worsening symptoms, difficulty walking, vision changes, motor weakness or any other concerns. Your blood pressure was elevated while in the Emergency Department, please have your doctor re-evaluate it in the next 48 hours as
untreated hypertension may lead to serious complications. Please see your doctor in the next 3 days for follow-up and reevaluation.
Interventions
Interventions:
*Risk Screen - Suicide Last Done: 08/06/24 21:22
*General Assessment Last Done: 08/06/24 21:22
Discharge Date and Time
Print Language: TAJIK
== END 2024-08-07 02:26 | disposition home or self-care (01) ==
LOC: EMR 21:13
PROVIDERS: Emergency Medicine; EMERGENCY PHYSICIAN Emergency Medicine; FAMILY PHYSICIAN Family Medicine
DX: R42 Dizziness and giddiness (principal); E11.9 Type 2 diabetes mellitus without complications; E78.00 Pure hypercholesterolemia, unspecified; I10 Essential (primary) hypertension; I25.10 Atherosclerotic heart disease of native coronary artery without angina pectoris; Z87.891 Personal history of nicotine dependence; Z95.5 Presence of coronary angioplasty implant and graft
CPT/HCPCS: 99284; 80053; 82962; 84484; 85025; 93005